=== PATIENT | male | born 1970 | race Caucasian/White ===

== ENCOUNTER 2020-05-20 09:18 | Emergency (ER) | payer BC, SELFPAY ==
[2020-05-20 09:19] VITALS: BP 131/78; PULSE 72; RESP 16; TEMP 36.2; O2SAT 100; BMI 22.4
[2020-05-20 09:35] VITALS: O2SAT 100
--- NOTE | 2020-05-20 09:40 | ED.DCSUM_ITS ---
History of Present Illness Chief Complaint: Cough Informant: Patient Onset: Yesterday Context: Sudden Onset Timing: Continuous Quality: Upper respiratory infectious symptoms Location: Dyspnea, malaise, cough Current Severity: Mild Maximum Severity: Moderate Worsened by: Dyspnea on exertion Relieved by: Nothing Associated Symptoms: Upper respiratory symptoms Narrative: Patient is a 49-year-old male with no significant past medical history who presents with rhinorrhea, congestion, postnasal drainage, sore throat, cough, myalgias and arthralgias with mild headache. He denies photophobia, neck pain or neck stiffness. He denies documented fever. He states his daughter is ill with similar symptoms started 2 days prior to his. He denies abdominal pain, nausea, vomiting or diarrhea. He denies urologic symptoms. He denies rash. He denies discoloration of his fingers or toes. Prior similar symptoms: No Recent Illness/Hospitalization: No - Past Medical History (1) No significant past medical history Status: Acute Past Medical History - Allergies and Home Meds Allergies/Adverse Reactions: Allergies No Known Allergies Allergy (Verified 05/20/20 09:18) Primary Care Physician: Care Physician,No Primary [Primary Care Provider] - Prior records reviewed: No Past Medical History: None Surgical History: noncontributory Lives: Spouse/ Significant Other, With Family Smoking Status: Never smoker Alcohol: None Drugs: None Review of Systems General: Reports: Chills, Fever, Malaise, Subjective. Denies: Sweats Eyes: Denies: Visual changes - bilaterally, Blurred Vision - bilaterally ENT: Reports: Rhinorrhea, Sore throat. Denies: Bilateral ear pain Cardiovascular: Reports: Chest pain, Heart racing. Denies: Palpitations Respiratory: Reports: Dyspnea, Cough, Dyspnea on exertion. Denies: Orthopnea, Paroxysmal nocturnal dyspnea Gastrointestinal: Denies: Abdominal pain, Nausea, Vomiting, Diarrhea, Melena, Hematochezia Genitourinary: Denies: Dysuria, Hematuria, Frequency Musculoskeletal: Reports: Myalgias, Arthralgias. Denies: Neck pain, Back pain, Swelling, Extremity Pain, -, - Skin: Denies: Rash, Wounds Neurological: Reports: Headache, Weakness Endocrine: Denies: Polyuria, Polydipsia Hematologic: Denies: Easy bruising, Easy bleeding Physical Exam Vital Signs/Narrative: Vital Signs Temp Pulse Resp BP Pulse Ox 05/20/20 09:19 97.1 F L 72 16 131/78 H 100 Inital Vital Signs reviewed: Yes General: Well nourished, Well developed, - - She does not appear well. He appears slightly flushed. Head: Normocephalic, Atraumatic Eyes: Perrl, EOMI. Negative for: Pale conjunctiva, Scleral icterus ENT: No rhinorrhea Neck: Supple, Nontender, No lymphadenopathy, No JVD Cardiovascular: Regular rate, Regular rhythm, No murmurs, Normal S1, Normal S2 Respiratory: No distress, Chest nontender, Rales - Fine scattered rales left lower lobe.. Negative for: CTA bilaterally Abdomen: Soft, Nontender, Nondistended, Normal bowel sounds Rectal: Deferred Extremities: Nontender, No edema Skin: Normal color, No rash. Negative for: Cyanosis, Diaphoresis, Jaundice, No Trauma Neurological: Alert, Oriented x3, Cranial nerves II-XII grossly intact, Normal S trength, Normal Sensation Psychological: Normal affect Diagnostic/Tx/Re-eval Chest X-Ray - ED: 1 View, Read by ED Physician, Normal, Heart, Mediastinum, Bony Structures, Chronic Changes, - - Evidence of hyper aeration. There is no effusion, infiltrate or pneumothorax. Impressions Chest X-Ray 05/20/20 09:58 IMPRESSION: Hyperinflation. The lungs are clear. Electronically Signed: Domingo Martínez, at 10:27 EST , Service support , 05/20/20 09:58 Chest 1 View (Portable) [RAD] Stat - Medical Decision Making She presents with upper respiratory symptoms. Concerned this represents viral infection, rhinovirus, enterovirus versus COVID-19. Chest x-ray is obtained to assess for pneumonia. Since patient is not febrile, hypoxic and his vital signs are no laboratory blood work was ordered. ED Disposition - Plan for ED Patient: Disposition: Home or Assisted Living Diagnosis: Upper respiratory infection with cough and congestion Instructions: ED URI, Viral, No Abx (Adult) Prescriptions: Hydrocodone Bit/Homatropine [Hycodan Syrup] 5 ml PO Q6H PRN PRN #[id number] PRN Reason: Cough Prescription Printed Referrals: Care Physician,No Primary [Primary Care Provider] - Doctor,Your [STAFF PHYSICIAN] - 10-14 Days if not better
--- NOTE | 2020-05-20 09:58 | RAD_ITS ---
STUDY: X-RAY CHEST REASON FOR EXAM: Male, 49 years old. COUGH AND SOB STARTING YESTERDAY. TECHNIQUE: Single AP portable view of the chest. COMPARISON: Comparison is made with prior study dated 05/31/2014. FINDINGS: EKG electrodes are seen. Hyperinflation. The lungs are clear. There is no demonstrated pleural abnormality. Normal size heart. Normal mediastinum and esteban. Normal visualized pulmonary arteries. Normal visualized aortic arch and descending thoracic aorta. There are diffuse degenerative changes of the visualized thoracic spine. Normal visualized ribs, clavicles, and shoulders. There is no demonstrated abnormality of the visualized soft tissue structures of the upper abdomen. RAD/Chest 1 View (Portable) IMPRESSION: Hyperinflation. The lungs are clear. Electronically Signed: Domingo Martínez, at 10:27 EST , Service support ,
== END 2020-05-20 12:21 | disposition home or self-care (01) ==
PROVIDERS: Emergency Provider Emergency Medicine
DX: J06.9 Acute upper respiratory infection, unspecified (principal)
CPT/HCPCS: 71045; 87426; 99283